=== PATIENT | female | born 1985 | race Caucasian/White ===

== ENCOUNTER 2018-12-28 12:11 | Outpatient (CLI) | payer OTHER ==
[2018-12-28] MEDS: BETAMET NA PHOS/AC(6 MG/ML) 2 ML INJ SYG IM (13:55)
== END 2018-12-28 15:00 | disposition home or self-care (01) ==
LOC: OBT 12:11 → L-D 12:14 → OBT 15:00
DX: O60.03 Preterm labor without delivery, third trimester (principal); Z3A.35 35 weeks gestation of pregnancy
CPT/HCPCS: 76815; 76818